=== PATIENT | male | born 1995 | race Caucasian/White ===

== ENCOUNTER 2017-04-22 09:49 | Emergency (ER) | payer SELFPAY ==
[~2017-04-22] VITALS: Ht 175.3 cm; Wt 67.0 kg
[~2017-04-22 09:49] MED LIST: IBUP-779; NEO/5DRO3; SULF1TAB48
[2017-04-22 10:12] VITALS: BP 145/99
== END 2017-04-22 11:38 | disposition home or self-care (01) ==
LOC: ER 11:36
DX: L30.9 Dermatitis, unspecified (principal); L40.9 Psoriasis, unspecified
CPT/HCPCS: 99283

== ENCOUNTER 2022-06-23 10:20 | Emergency (ER) | payer MEDICAID ==
[~2022-06-23] VITALS: Ht 177.8 cm; Wt 79.0 kg
[2022-06-23 10:23] VITALS: BP 144/82
[2022-06-23 12:45] LABS: CLARITY URINE CLEAR (CLEAR); COLOR URINE YELLOW (YELLOW); KETONES URINE NEGATIVE (NEGATIVE); LEUKOCYTE ESTERASE URINE NEGATIVE (NEGATIVE); NITRITE URINE NEGATIVE (NEGATIVE); OCCULT BLOOD URINE NEGATIVE (NEGATIVE); PROTEIN URINE NEGATIVE (NEGATIVE); SPECIFIC GRAVITY URINE 1.019 (1.005-1.030)
[2022-06-23] MEDS ORDERED: SULF1TAB48 MT (13:27)
[2022-06-23] MEDS ORDERED: DOCU-150 MT (13:27)
== END 2022-06-23 13:35 | disposition home or self-care (01) ==
LOC: ER 10:24
DX: N41.9 Inflammatory disease of prostate, unspecified (principal)
CPT/HCPCS: 81003; 99283